=== PATIENT | male | born 1955 ===

== ENCOUNTER 2021-03-15 10:03 | Emergency (ER) | payer OTHER, BC | END 2021-03-15 11:27 | disposition home or self-care (01) | LOC: DL.ED 10:03 | DX: S43.402A Unspecified sprain of left shoulder joint, initial encounter (principal); S50.02XA Contusion of left elbow, initial encounter; K21.9 Gastro-esophageal reflux disease without esophagitis; E11.9 Type 2 diabetes mellitus without complications; Z79.84 Long term (current) use of oral hypoglycemic drugs; Z79.899 Other long term (current) drug therapy; Z88.5 Allergy status to narcotic agent; W00.0XXA Fall on same level due to ice and snow, initial encounter | CPT/HCPCS: 73030-LT; 73080-LT; 82947; 99283-25 ==

== ENCOUNTER 2021-06-04 17:38 | Emergency (ER) | payer BC, OTHER ==
[2021-06-04] MEDS ORDERED: Doxycycline Monohydrate 100 MG Cap PO ONE (17:39)
[2021-06-04] MEDS ORDERED: Doxycycline Monohydrate 100 MG Cap ONE (20:15)
[2021-06-04] MEDS ORDERED: Nystatin Crm 15 GM Tube ONE (20:16)
== END 2021-06-04 20:30 | disposition home or self-care (01) ==
LOC: DL.ED 17:38
DX: L73.9 Follicular disorder, unspecified (principal); L29.9 Pruritus, unspecified; K21.9 Gastro-esophageal reflux disease without esophagitis; E11.9 Type 2 diabetes mellitus without complications; Z79.899 Other long term (current) drug therapy; Z79.84 Long term (current) use of oral hypoglycemic drugs; Z88.5 Allergy status to narcotic agent
CPT/HCPCS: 99282; 99283; A9270-GY

== ENCOUNTER 2023-12-06 05:09 | Emergency (ER) | payer BC ==
[2023-12-06] MEDS ORDERED: Sodium Chloride 0.9% 10 ML Syringe FLUSH PRN (05:33)
[2023-12-06 05:48] LABS: BASOPHILS PERCENT AUTO 0.1 % (0.0-1.0); EOSINOPHILS PERCENT AUTO 0.9 % (1.0-3.0); HEMATOCRIT 56.9 % (40.0-54.0); HEMOGLOBIN 19.5 g/dL (14.0-18.0); LYMPHOCYTES PERCENT AUTO 14.3 % (20.5-50.1); MEAN CORPUSCULAR HEMOGLOBIN 30.7 pg (27.0-34.0); MEAN CORPUSCULAR HGB CONC 34.3 g/dL (33.0-35.0); MEAN CORPUSCULAR VOLUME 89.5 fL (80-100); MONOCYTES PERCENT AUTO 18.5 % (2-8); NEUTROPHILS PERCENT AUTO 66.2 % (42.2-75.2); PLATELET COUNT,PLT 189 10^3/uL (150-450); RED BLOOD CELL COUNT 6.36 10^6/uL (4.6-6.2); WHITE BLOOD CELL COUNT,WBC 9.6 10^3/uL (5.0-10.0)
[2023-12-06] MEDS: Ondansetron 4 MG/2 ML SDV IVPUSH ONE (05:55)
[2023-12-06] MEDS: Sodium Chloride 0.9% 1,000 ML IV ONE (06:00)
[2023-12-06 06:09] LABS: ALANINE AMINOTRANSFERASE,ALT 21 U/L (16-63); ALBUMIN 3.8 g/dL (3.4-5.0); ALKALINE PHOSPHATASE 71 U/L (46-116); ASPARTATE AMNIOTRANSFERASE,AST 6 U/L (15-37); BILIRUBIN TOTAL 0.8 mg/dL (0.2-1.0); BLOOD UREA NITROGEN,BUN 20 mg/dL (7-18); BUN/CREATININE RATIO 14.8 (No establ ref range); CALCIUM 9.5 mg/dL (8.5-10.1); CARBON DIOXIDE,CO2 32 mmol/L (21-32); CHLORIDE,CL 97 mmol/L (98-107); CREATININE 1.35 mg/dL (0.70-1.30); EST CRCL DRUG DOSING (CG) 54.83 mL/min; GLUCOSE RANDOM 204 mg/dL (70-99); LIPASE 40 U/L (16-77); PROTEIN TOTAL,TP 7.7 g/dL (6.4-8.2); SODIUM,NA 139 mmol/L (136-145)
[2023-12-06 06:10] LABS: ESTIMATED GFR 58 mL/min (>=60)
[2023-12-06] MEDS: Iopamidol 612 MG/ML 100 ML Bottle IVPUSH ONE (06:20)
[2023-12-06 07:35] LABS: LACTIC ACID 1.9 mmol/L (0.4-2.0)
== END 2023-12-06 08:59 | disposition home or self-care (01) ==
LOC: DL.ED 05:09
DX: K52.9 Noninfective gastroenteritis and colitis, unspecified (principal); E11.9 Type 2 diabetes mellitus without complications; K21.9 Gastro-esophageal reflux disease without esophagitis; Z88.5 Allergy status to narcotic agent; Z79.84 Long term (current) use of oral hypoglycemic drugs; Z79.899 Other long term (current) drug therapy
CPT/HCPCS: 36415; 74177; 80053; 83605; 83690; 84484; 85025; 96361; 96374; 99284; J2405; J7030; Q9967

== ENCOUNTER 2023-12-17 10:14 | Emergency (ER) | payer BC ==
[2023-12-17 10:44] LABS: BASOPHILS PERCENT AUTO 0.2 % (0.0-1.0); EOSINOPHILS PERCENT AUTO 12.8 % (1.0-3.0); HEMATOCRIT 50.9 % (40.0-54.0); HEMOGLOBIN 17.3 g/dL (14.0-18.0); LYMPHOCYTES PERCENT AUTO 13.9 % (20.5-50.1); MEAN CORPUSCULAR HEMOGLOBIN 30.5 pg (27.0-34.0); MEAN CORPUSCULAR VOLUME 89.6 fL (80-100); MONOCYTES PERCENT AUTO 6.9 % (2-8); NEUTROPHILS PERCENT AUTO 66.2 % (42.2-75.2); PLATELET COUNT,PLT 196 10^3/uL (150-450); RED BLOOD CELL COUNT 5.68 10^6/uL (4.6-6.2); WHITE BLOOD CELL COUNT,WBC 15.7 10^3/uL (5.0-10.0)
[2023-12-17] MEDS: Sodium Chloride 0.9% 1,000 ML IV ONE (10:51)
[2023-12-17] MEDS: Ondansetron 4 MG/2 ML SDV IVPUSH ONE (10:51)
[2023-12-17 11:02] LABS: A/G RATIO 1.1; ALANINE AMINOTRANSFERASE,ALT 21 U/L (16-63); ALBUMIN 3.5 g/dL (3.4-5.0); ALKALINE PHOSPHATASE 65 U/L (46-116); ASPARTATE AMNIOTRANSFERASE,AST 9 U/L (15-37); BILIRUBIN TOTAL 0.6 mg/dL (0.2-1.0); BLOOD UREA NITROGEN,BUN 22 mg/dL (7-18); BUN/CREATININE RATIO 16.3 (No establ ref range); CALCIUM 9.4 mg/dL (8.5-10.1); CARBON DIOXIDE,CO2 31 mmol/L (21-32); CHLORIDE,CL 101 mmol/L (98-107); CREATININE 1.35 mg/dL (0.70-1.30); EST CRCL DRUG DOSING (CG) 54.83 mL/min; GLUCOSE RANDOM 146 mg/dL (70-99); MAGNESIUM 1.9 mg/dL (1.8-2.4); PROTEIN TOTAL,TP 6.6 g/dL (6.4-8.2); SODIUM,NA 137 mmol/L (136-145)
[2023-12-17 11:05] LABS: C-REACTIVE PROTEIN < 0.50 ng/dL (<=0.50); ESTIMATED GFR 58 mL/min (>=60)
== END 2023-12-17 11:40 | disposition home or self-care (01) ==
LOC: DL.ED 10:14
DX: K29.00 Acute gastritis without bleeding (principal); E11.9 Type 2 diabetes mellitus without complications; K21.9 Gastro-esophageal reflux disease without esophagitis; Z88.5 Allergy status to narcotic agent; Z88.8 Allergy status to other drugs, medicaments and biological substances; Z79.84 Long term (current) use of oral hypoglycemic drugs; Z79.899 Other long term (current) drug therapy
CPT/HCPCS: 36415; 80053; 83735; 85025; 86140; 87428-QW; 96374; 99284; 99284-25; J2405; J7030